=== PATIENT | male | born 1985 | race Two or more races ===

== ENCOUNTER 2017-06-14 19:54 | Emergency (ER) | payer SELFPAY ==
[2017-06-14 19:58] VITALS: BMI 27.4
[2017-06-14 20:01] VITALS: BP 149/89; PULSE 84; RESP 16; TEMP 97.5; O2SAT 99
--- NOTE | 2017-06-14 20:08 | ED PDOC ---
Upper Extremity Pain/Injury Time Seen by Provider: 06/14/17 20:02 Chief Complaint (Nursing): Abnormal Skin Integrity Chief Complaint (Provider): finger laceration History Per: Family (son at bedside is translating in [place]vian as per patient request) Onset/Duration Of Symptoms: Mins (prior to arrival ) Current Symptoms Are (Timing): Still Present Additional Complaint(s): Lui Thomas is a 31 year old right hand dominant male who presents to the emergency department, accompanied by his son, for evaluation of laceration to left 3rd digit sustained when patient accidentally cut finger with a ammonia box operator just prior to arrival. He is not sure of last tetanus. Patient complains of throbbing pain but denies any numbness or tingling to affected area. PMD: none provided Past Medical History Reviewed: Historical Data, Nursing Documentation, Vital Signs Vital Signs: Last Vital Signs Temp 97.5 F L 06/14/17 19:59 Pulse 84 06/14/17 19:59 Resp 16 06/14/17 19:59 BP 149/89 06/14/17 19:59 Pulse Ox 99 06/14/17 19:59 - Medical History PMH: No Chronic Diseases - Surgical History Surgical History: Appendectomy - Family History Family History: States: No Known Family Hx - Living Arrangements Living Arrangements: With Family - Social History Current smoker - smoking cessation education provided: No Alcohol: None Drugs: Denies - Immunization History Hx Tetanus Toxoid Vaccination: No (not sure of last tetanus) - Home Medications Home Medications: Ambulatory Orders Medication Instructions Recorded Cephalexin [Keflex] 500 mg PO TID #21 capsule 06/14/17 Ibuprofen [Motrin Tab] 800 mg PO Q8 PRN #20 tab 06/14/17 - Allergies Allergies/Adverse Reactions: Allergies Allergy/AdvReac Type Severity Reaction Status Date / Time No Known Allergies Allergy Verified 06/14/17 19:57 Review of Systems ROS Statement: Except As Marked, All Systems Reviewed And Found Negative Musculoskeletal: Positive for: Other (left 3rd digit laceration) Physical Exam - Reviewed Nursing Documentation Reviewed: Yes Vital Signs Reviewed: Yes - Physical Exam Appears: Positive for: Well, Non-toxic, No Acute Distress Skin: Positive for: Normal Color. Negative for: Rash Extremity: Positive for: Other (1 cm flap laceration noted to distal aspect of left 3rd digit with mild active bleeding, laceration goes through very distal aspect of fingernail with no nailbed exposure. ) Neurologic/Psych: Positive for: Alert, Oriented. Negative for: Motor/Sensory Deficits - ECG O2 Sat by Pulse Oximetry: 99 (RA) Pulse Ox Interpretation: Normal - Other Rad Left hand x-ray X-Ray: Interpreted by Me, Viewed By Me X-Ray Interpretation: laceration to left 3rd digit, no fx, no dis Medical Decision Making Medical Decision Making: Initial Impression: Left 3rd digit laceration Initial Plan: * Tetanus 0.5ml IM * Xray hand (left) * Lac repair Patient was given wound care instructions. Advised wound check in 2 days. Patient informed that sutures are absorbable. Scribe Attestation: Documented by Amira Paredes, acting as a scribe for Inga Menard PA-C. Provider Scribe Attestation: All medical record entries made by the Scribe were at my direction and personally dictated by me. I have reviewed the chart and agree that the record accurately reflects my personal performance of the history, physical exam, medical decision making, and the department course for this patient. I have also personally directed, reviewed, and agree with the discharge instructions and disposition. Procedures - Laceration/Wound Repair Left 3rd digit Wound Length (cm): 1 Wound's Depth, Shape: flap Wound Explored: clean Irrigated w/ Saline (ccs): 20 Betadine Prep?: Yes Anesthesia: 1% Lidocaine Volume Anesthetic (ccs): 5 Wound Debrided: minimal Wound Repaired With: Sutures Suture Size/Type: 4:0 (absorbable) Number of Sutures: 5 Layer Closure?: No Wound Complexity: Simple Sterile Dressing Applied?: Yes Splint Applied?: No Progress: Procedure was tolerated well by patient Disposition - Clinical Impression Clinical Impression: Finger laceration, Requires a booster tetanus - Patient ED Disposition Is Patient to be Admitted: No Counseled Patient/Family Regarding: Studies Performed, Diagnosis, Need For Followup, Rx Given - Disposition Referrals: [facility] [Outside] Davi Rahman MD [Medical Doctor] - Disposition: Routine/Home Disposition Time: 20:58 Condition: STABLE Additional Instructions: KEEP WOUND CLEAN AND DRY. WASH DAILY WITH SOAP AND WATER AND APPLY BACITRACIN ONCE PER DAY. WOUND CHECK IN 3-4 DAYS WITH CLINIC OR HAND SPECIALIST. RETURN TO ED ANY TIME IF ACUTELY WORSE. Prescriptions: Cephalexin [Keflex] 500 mg PO TID #21 capsule Ibuprofen [Motrin Tab] 800 mg PO Q8 PRN #20 tab PRN Reason: Pain, Moderate (4-7) Instructions: Finger Laceration (ED), Diphtheria/Acellular Pertussis/Tetanus Vaccine (DTaP) (By injection) Forms: DN2K (Latvian)
--- NOTE | 2017-06-15 08:54 | RAD ---
PROCEDURE: Left Hand Radiographs. HISTORY: trauma COMPARISON: None. FINDINGS: BONES: Normal. No fracture. JOINTS: Normal. No osteoarthritic changes. SOFT TISSUES: Normal. OTHER FINDINGS: None. IMPRESSION: Normal left hand radiographs.
== END 2017-06-14 21:13 | disposition home or self-care (01) ==
LOC: H.ER 19:54
DX: S61.213A Laceration without foreign body of left middle finger without damage to nail, initial encounter (principal); W45.8XXA Other foreign body or object entering through skin, initial encounter; Z23 Encounter for immunization